=== PATIENT | female | born 1970 | race Two or more races ===

== ENCOUNTER → 2024-07-15 | Day surgery (SDC) | payer OTHER ==
[2024-07-10 14:56] VITALS: BP 140/83
[~2024-07-15] VITALS: Ht 157.5 cm; Wt 98.4 kg
[~2024-07-15] MED LIST: AVALIDE 300-121 EACH; IBU600 MG PO; NORVASC5 MG; POVIDONE-IODINE 118 ML BOTT TOP ONE; SYNTHROID125 MCG
== END | disposition home or self-care (01) ==
LOC: ADM 07-10 11:45 → CIR.AMB 06:57
PROVIDERS: ATTEND Obstetrics & Gynecology Gynecology
DX: N84.0 Polyp of corpus uteri (principal); N80.03 Adenomyosis of the uterus; N84.1 Polyp of cervix uteri